=== PATIENT | female | born 1940 | race Caucasian/White ===

== ENCOUNTER 2024-07-16 19:01 | Observation (INO) | payer OTHER ==
[2024-07-16 19:36] LABS: ABSOLUTE IMMATURE GRANULOCYTES 0.01 x10^3/uL (0.0-0.031); BASOPHILS # 0.02 x10^3/uL (0.01-0.08); EOSINOPHIL % 5.2 % (0.7-5.8); EOSINOPHILS # 0.15 x10^3/uL (0.04-0.36); HEMOGLOBIN 12.8 g/dL (11.2-15.7); MCHC 35.6 g/dl (32.2-35.5); MEAN CELL VOLUME 94.7 fl (79.4-94.8); MONOCYTE # 0.57 x10^3/uL (0.24-0.86); MONOCYTE % 19.6 % (4.7-12.5); PLATELET COUNT 183 x10^3/uL (182-369); RDW 11.3 % (12.5-17.0)
[2024-07-16 19:51] LABS: ALK PHOS 54 U/L (45-117); ANION GAP 7 mmol/L (4-13); BILIRUBIN,TOTAL 0.6 mg/dl (0.2-1); CALCIUM 8.8 mg/dl (8.5-10.1); CHLORIDE 88 mmol/L (98-107); CO2 29 mmol/L (21-32); CREATININE 0.9 mg/dl (0.6-1.3); GLUCOSE,RANDOM 98 mg/dl (74-106); POTASSIUM 4.6 mmol/L (3.5-5.1); SGOT/AST 47 U/L (15-37); SGPT/ALT 39 U/L (7-52); SODIUM 124 mmol/L (136-145); TOT PROT 6.7 g/dl (6.4-8.2)
[2024-07-16] MEDS: SODIUM CHLORIDE 0.9% 500 ML INFUS.BAG IV ONE (20:16)
[2024-07-16 22:00] LABS: MAGNESIUM 1.9 mg/dL (1.8-2.4); PHOSPHOROUS 4.7 (2.5-4.9)
[2024-07-16] MEDS ORDERED: ACETAMINOPHEN 500 MG TABLET (FP) PO PRN (22:13)
[2024-07-16] MEDS ORDERED: DOCUSATE SODIUM 100 MG CAPSULE (FP) PO PRN (22:13)
[2024-07-16 23:20] LABS: N-TERMINAL BNP 97.8 pg/ml (5-450)
[2024-07-17 02:02] VITALS: RESP 18
[2024-07-17 03:57] LABS: EPI CELLS 4 /uL (0-25.1); HYALINE CASTS 0 /uL (0-3.1); PH,URINE 7.5 (5.0-8.0); URINE APPEARANCE CLEAR; URINE BACTERIA 11 /uL (0-1359); URINE BILIRUBIN NEGATIVE (NEGATIVE); URINE COLOR YELLOW; URINE GLUCOSE (UA) NEGATIVE (NEGATIVE); URINE KETONE NEGATIVE (NEGATIVE); URINE LEUK ESTERASE 1+ (NEGATIVE); URINE NITRITE NEGATIVE (NEGATIVE); URINE PROTEIN NEGATIVE (NEGATIVE); URINE RBC 8 /uL (0-23.9); URINE UROBILINOGEN 0.2 mg/dL (0.2-1.0)
[2024-07-17 07:40] LABS: ABSOLUTE IMMATURE GRANULOCYTES 0.01 x10^3/uL (0.0-0.031); BASOPHILS # 0.02 x10^3/uL (0.01-0.08); EOSINOPHIL % 5.9 % (0.7-5.8); EOSINOPHILS # 0.18 x10^3/uL (0.04-0.36); HEMATOCRIT 35.9 % (34.1-44.9); MCHC 36.2 g/dl (32.2-35.5); MEAN PLT VOLUME 10.3 fl (9.4-12.3); MONOCYTE # 0.51 x10^3/uL (0.24-0.86); MONOCYTE % 16.8 % (4.7-12.5); PLATELET COUNT 185 x10^3/uL (182-369); RDW 11.2 % (12.5-17.0)
[2024-07-17] MEDS: LEVOTHYROXINE NA 88 MCG TABLET (FP) PO SCH (08:26)
[2024-07-17 08:44] LABS: CREATININE 0.5 mg/dl (0.6-1.3)
[2024-07-17] MEDS: LOSARTAN POTASSIUM 25 MG TABLET PO SCH (09:26)
[2024-07-17] MEDS: ASPIRIN 81 MG CHEWABLE TABLETS PO SCH (09:26)
[2024-07-17] MEDS: diphenhydrAMINE HCL 25 MG CAPSULE (FP) PO ONE (09:27)
[2024-07-17 14:33] VITALS: BP 138/72; PULSE 66; TEMP 97.9
[2024-07-17 15:51] VITALS: BMI 25.4
== END 2024-07-17 16:34 | disposition home or self-care (01) ==
LOC: FER 19:01 → FM/S 20:17
PROVIDERS: ADMIT Hospitalist; ATTEND Internal Medicine
PROC: 3E0337Z Introduction of Electrolytic and Water Balance Substance into Peripheral Vein, Percutaneous Approach (ICD-10-PCS; principal; 2024-07-16)
DX: E87.1 Hypo-osmolality and hyponatremia (principal); I10 Essential (primary) hypertension; E03.9 Hypothyroidism, unspecified
CPT/HCPCS: 36415; 71045-TC-FY; 80048; 80053; 81003; 83735; 83880; 83930; 83935; 84100; 84295; 84300; 84439; 84443; 85025; 93005; 93010; 96360; 97116-GP; 97161-GP; 99285-25; G0378

== ENCOUNTER 2024-11-02 10:12 | Emergency (ER) | payer OTHER ==
[2024-11-02 10:34] VITALS: BMI 25.4
[2024-11-02] MEDS: MECLIZINE HCL 25 MG TABLET (FP) PO ONE (12:00)
[2024-11-02] MEDS: SODIUM CHLORIDE 0.9% 1000 ML INFUS.BAG IV ONE (12:00)
[2024-11-02] MEDS: ACETAMINOPHEN 325 MG TABLET (FP) PO ONE (12:00)
[2024-11-02 12:02] LABS: ABSOLUTE IMMATURE GRANULOCYTES 0.03 x10^3/uL (0.0-0.031); BASOPHILS # 0.06 x10^3/uL (0.01-0.08); EOSINOPHIL % 1.6 % (0.7-5.8); EOSINOPHILS # 0.13 x10^3/uL (0.04-0.36); MCHC 34.0 g/dl (32.2-35.5); MEAN CELL VOLUME 94.8 fl (79.4-94.8); MEAN PLT VOLUME 9.8 fl (9.4-12.3); MONOCYTE # 0.69 x10^3/uL (0.24-0.86); MONOCYTE % 8.5 % (4.7-12.5); RDW 11.7 % (12.5-17.0)
[2024-11-02] MEDS ORDERED: ACETAMINOPHEN 325 MG TABLET (FP) ONE (12:15)
[2024-11-02] MEDS ORDERED: MECLIZINE HCL 25 MG TABLET (FP) ONE (12:15)
[2024-11-02 12:18] LABS: GLUCOSE,RANDOM 88.0 mg/dL (74-106)
[2024-11-02 12:19] LABS: TOT PROT 7.0 g/dl (6.4-8.2)
[2024-11-02 12:20] LABS: CO2 25.0 mmol/L (21-32)
[2024-11-02 12:21] LABS: ALK PHOS 63.0 U/L (40-150)
[2024-11-02 12:24] LABS: CREATININE 0.64 mg/dL (0.55-1.3); LDL CHOLESTEROL (ONLY SJRH) 72.0 mg/dL (5-100); SGOT/AST 45.0 U/L (5-34); SGPT/ALT 39.0 U/L (0-55)
[2024-11-02 12:32] LABS: N-TERMINAL BNP 91.4 pg/mL (0-299.9)
[2024-11-02 17:50] VITALS: BP 154/85; PULSE 85; RESP 18; TEMP 98.2
== END 2024-11-02 16:15 | disposition home or self-care (01) ==
LOC: JER 10:12
DX: S09.90XA Unspecified injury of head, initial encounter (principal); S30.1XXA Contusion of abdominal wall, initial encounter; R55 Syncope and collapse; R42 Dizziness and giddiness; M25.511 Pain in right shoulder; M25.551 Pain in right hip; M25.561 Pain in right knee; M53.3 Sacrococcygeal disorders, not elsewhere classified; W17.89XA Other fall from one level to another, initial encounter; Y92.009 Unspecified place in unspecified non-institutional (private) residence as the place of occurrence of the external cause
CPT/HCPCS: 36415; 70450-TC; 71260-TC; 72125-TC; 72170-TC-FY; 73030-TC-RT-FY; 73502-TC-RT-FY; 73562-TC-RT-FY; 74177-TC; 80053; 80061; 83880; 84436; 84443; 84484; 85025; 93005; 93010; 99285-25